=== PATIENT | female | born 2000 | race African-American/Black ===

== ENCOUNTER 2022-05-20 00:39 | Emergency (ER) | payer MEDICAID ==
[~2022-05-20] VITALS: Ht 177.8 cm; Wt 70.3 kg
--- NOTE | 2022-05-20 00:50 | NUR ---
BIBS FOR EVALUATION OF SORES ON R SIDE OF HER FACE SINCE MORNING
[2022-05-20] MEDS ORDERED: SULF1TAB48 PO (01:18)
[2022-05-20] MEDS ORDERED: SULFAMETH/TRIMETH 800/160 MG 1 UDTAB TABLET PO ONE (01:30)
[2022-05-20] MEDS ORDERED: SULFAMETH/TRIMETH 800/160 MG 1 UDTAB TABLET ONE (01:31)
--- NOTE | 2022-05-20 01:32 | NUR ---
PT TAKEN TO CT
--- NOTE | 2022-05-20 03:17 | NUR ---
Patient discharged to home in stable condition. Written and verbal after care instructions given. Patient verbalizes understanding of instruction.
[2022-05-20 03:18] VITALS: BP 121/84
== END 2022-05-20 03:18 | disposition home or self-care (01) ==
LOC: ER 00:45
DX: S09.90XA Unspecified injury of head, initial encounter (principal); L01.00 Impetigo, unspecified; Z11.3 Encounter for screening for infections with a predominantly sexual mode of transmission; J45.909 Unspecified asthma, uncomplicated; Z98.890 Other specified postprocedural states; X58.XXXA Exposure to other specified factors, initial encounter; Y93.89 Activity, other specified; Y92.89 Other specified places as the place of occurrence of the external cause; Y99.8 Other external cause status
CPT/HCPCS: 70450-TC; 84703-TC; 87491; 87591